=== PATIENT | male | born 1995 | race Caucasian/White ===

== ENCOUNTER 2017-07-31 19:27 | Observation (INO) | payer OTHER ==
[2017-07-31] MEDS ORDERED: NS 1,000 ML IV ONE ×2 (19:36→20:20)
[2017-07-31] MEDS ORDERED: LORazepam 2 MG/ML INJ IVP ONE (19:36)
[2017-07-31 19:42] LABS: PLATELET COUNT 421 10^3/uL (150-400)
--- NOTE | 2017-07-31 19:52 | EDPHY ---
H & P Smoking Status: Unknown if ever smoked Time Seen by Provider: 07/31/17 19:30 HPI/ROS: CHIEF COMPLAINT: Seizure HISTORY OF PRESENT ILLNESS: 21-year-old male presents to the emergency department by ambulance after having witnessed seizure at work. The patient apparently had tonic-clonic seizure lasting approximately 1 min and then was postictal per EMS. He did not bite his tongue. He was not incontinent of urine. No history of seizure disorder. The patient has been sober from alcohol and marijuana since July 05. He denies chest pain or difficulty breathing. Denies abdominal pain. Denies vomiting. No neck or back pain. He does complain of a headache. No fevers. The patient does tell me that he does not sleep well. He does not take benzodiazepines or any sleep aids. REVIEW OF SYSTEMS: Constitutional: No fever, no chills. Eyes: No double or blurry vision. ENT: No sore throat. Respiratory: No cough, no shortness of breath. Cardiac: No chest pain. Gastrointestinal: No abdominal pain, vomiting or diarrhea. Genitourinary: No dysuria. Musculoskeletal: No neck or back pain. Skin: No rashes. Neurological: headache. (Dejah Brambila) Past Medical/Surgical History: Substance abuse sober from alcohol marijuana x1 month (Dejah Brambila) Social History: Single (Dejah Brambila) Physical Exam: General Appearance: Alert, no distress. Anxious. Eyes: Pupils equal and round. Extraocular motions are all intact. ENT: Mouth: Mucous membranes very dry Respiratory: No wheezing, rhonchi, or rales, lungs are clear to auscultation. Cardiovascular: Regular rate and rhythm. Gastrointestinal: Abdomen is soft and nontender, no masses, no rebound or guarding, bowel sounds normal. Neurological: Alert and oriented x 3, cranial nerves II through XII grossly intact Skin: Warm and dry, no rashes. Musculoskeletal: Nontender to palpate along the cervical, thoracic or lumbar spine. Neck is supple. Extremities: Full range of motion and no peripheral edema. Psychiatric: Patient is oriented X 3, there is no agitation. (Dejah Brambila) Constitutional: Initial Vital Signs Temperature (C) 37 C 07/31/17 19:37 Heart Rate 129 H 07/31/17 19:37 Respiratory Rate 20 07/31/17 19:37 Blood Pressure 114/65 07/31/17 19:37 O2 Sat (%) 98 07/31/17 19:37 O2 Delivery Mode Room Air Allergies/Adverse Reactions: No Known Allergies Allergy (Unverified 07/31/17 19:37) Home Medications: Medication Instructions Recorded Acetaminophen [Tylenol 325mg (*)] 650 mg PO Q6 PRN tab 08/01/17 Medical Decision Making ED Course/Re-evaluation: 21-year-old male with first-time seizure presents to the emergency department. CT imaging of the brain was obtained which was normal. Laboratory studies reveal elevated white blood cell count of over 17,000. His creatinine is 1.9. BUN is 35. CO2 is 9. Sodium 145. Patient is receiving 2 L of IV normal saline. He received 1 mg of lorazepam IV upon arrival. The patient is feeling much better although still tachycardic with a heart rate of 119. Given his laboratory studies, he will be admitted to the hospitalist, Dr. Eleuterio Holland. Case was discussed with Dr. Noyola, secondary supervising physician, who did not directly evaluate the patient but agrees with treatment and plan. (Dejah Brambila) I have evaluated and participated in the management of this patient. My co- signature indicates that I have reviewed this chart and that I agree with the findings and the plan of care as documented. My personal history and physical findings include: Normal lung and breath sounds. He no longer has a headache. 21-year-old male in general good health who had a witnessed tonic-clonic seizure while at work tonight. 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 He denies a history of alcohol abuse and states that he has not had any alcohol for the past 3 weeks. He has never had a seizure before. He has not recently been ill, but states that he has not been sleeping well. At the time of my evaluation he reports a mild headache. He denies other injuries. On exam he is awake and alert. FOREST. EOMI. Facial expression symmetric. Tongue midline. Strength 5/5 throughout. Sensation intact to light touch over all 4 extremities. He is noted to have abnormal renal function/acute kidney injury. In addition is labs show electrolyte abnormalities and an anion gap acidosis. I doubt that these would result in seizure activity but that is certainly a possibility. He is being hospitalized for observation and further evaluation. ( Eloisa Noyola) Differential Diagnosis: Seizure including but not limited to electrolyte abnormality, alcohol withdrawal , medication noncompliance, head injury, and breakthrough seizure. (Dejah Brambila) - Data Points Laboratory Results: Laboratory Results 07/31/17 19:20 07/31/17 19:20 Medications Given: Discontinued Medications Sodium Chloride (Ns) 1,000 mls @ 0 mls/hr IV ONCE ONE PRN Reason: Wide Open Stop: 07/31/17 19:37 Last Admin: 07/31/17 19:40 Dose: 1,000 mls Sodium Chloride (Ns) 1,000 mls @ 0 mls/hr IV ONCE ONE PRN Reason: Wide Open Stop: 07/31/17 20:21 Last Admin: 07/31/17 20:36 Dose: 1,000 mls Sodium Chloride (Ns) 1,000 mls @ 200 mls/hr IV CONT ARTHUR Stop: 08/01/17 09:14 Last Admin: 08/01/17 03:51 Dose: 1,000 mls Lorazepam (Ativan Injection) 1 mg IVP EDNOW ONE Stop: 07/31/17 19:37 Last Admin: 07/31/17 19:40 Dose: 1 mg Departure - Departure Disposition: [facility] Acute Clinical Impression: Seizure, Acute kidney injury Condition: Good
[2017-07-31] MEDS ORDERED: ONDANSETRON 4 MG/2 ML VIAL IVP PRN (21:02)
[2017-07-31] MEDS ORDERED: ACETAMINOPHEN 325 MG TAB PO PRN (21:02)
--- NOTE | 2017-07-31 21:06 | PDGENHP ---
History and Physical - Chief Complaint Seizure - History of Present Illness This is a 21-year-old male with no significant past medical history who presented to the hospital after having a seizure that was witnessed by his co- worker at 7:00 p.m. today. Denies any previous episodes of seizure. He denies any substance use. He tells me that he works at a [employer] and typically would have a few drinks per night. He has not had a drink of alcohol since July 05. He denies any preceding alcohol withdrawal symptoms. He tells me that he typically does not drink much water. Prior to his seizure today he has been in his usual state of health. Denies having any fevers or chills. Currently has a headache that he tells me is getting better. History Information - Allergies/Home Medication List Allergies/Adverse Reactions: No Known Allergies Allergy (Unverified 07/31/17 19:37) Home Medications: Ibuprofen [Motrin (*)] 400 mg PO DAILY PRN 07/31/17 [Last Taken 07/17/17] I have personally reviewed and updated: family history, medical history, social history, surgical history - Past Medical History no pertinent PMH - Surgical History Reports: no pertinent surgical hx - Social History Smoking Status: Unknown if ever smoked Alcohol Use: Occasionally (Has not had a drink since July 05) Drug Use: None Review of Systems Review of Systems: ROS: 10pt was reviewed & negative except for what was stated in HPI & below Physical Exam Physical Exam: Temp Pulse Resp BP Pulse Ox 37 C 117 H 20 110/63 99 07/31/17 19:37 07/31/17 20:10 07/31/17 20:10 07/31/17 20:10 07/31/17 20:10 Constitutional: no apparent distress, appears nourished, not in pain Eyes: PERRL, anicteric sclera, EOMI Ears, Nose, Mouth, Throat: moist mucous membranes, hearing normal, ears appear normal, no oral mucosal ulcers Cardiovascular: regular rate and rhythym, no murmur, rub, or gallop, No edema Respiratory: no respiratory distress, no rales or rhonchi, clear to auscultation Gastrointestinal: normoactive bowel sounds, soft, non-tender abdomen, no palpable masses Genitourinary: no bladder fullness, no bladder tenderness Skin: warm, normal color, no rashes or abrasions, no fluctuance, no induration, other (Healed burn on right forearm), No mottled Musculoskeletal: full muscle strength, no muscle tenderness, normal joint ROM, no joint effusions Neurologic: AAOx3, CN II-XII Intact, other (Slight tremor), No pronator drift, No facial droop Psychiatric: interacting appropriately, not anxious, not encephalopathic, thought process linear Lymph, Heme, Immunologic: no cervical LAD, no supraclavicular LAD Lab Data & Imaging Review 07/31/17 19:20 07/31/17 19:20 WBC 17.27 10^3/uL (3.80-9.50) H 07/31/17 19:20 RBC 5.94 10^6/uL (4.40-6.38) 07/31/17 19:20 Hgb 17.8 g/dL (13.7-17.5) H 07/31/17 19:20 Hct 54.5 % (40.0-51.0) H 07/31/17 19:20 MCV 91.8 fL (81.5-99.8) 07/31/17 19:20 MCH 30.0 pg (27.9-34.1) 07/31/17 19:20 MCHC 32.7 g/dL (32.4-36.7) 07/31/17 19:20 RDW 11.9 % (11.5-15.2) 07/31/17 19:20 Plt Count 421 10^3/uL (150-400) H 07/31/17 19:20 MPV 10.2 fL (8.7-11.7) 07/31/17 19:20 Neut % (Auto) 54.6 % (39.3-74.2) 07/31/17 19:20 Lymph % (Auto) 32.4 % (15.0-45.0) 07/31/17 19:20 Cass % (Auto) 10.5 % (4.5-13.0) 07/31/17 19:20 Eos % (Auto) 1.5 % (0.6-7.6) 07/31/17 19:20 Baso % (Auto) 0.7 % (0.3-1.7) 07/31/17 19:20 Nucleat RBC Rel Count 0.0 % (0.0-0.2) 07/31/17 19:20 Absolute Neuts (auto) 9.44 10^3/uL (1.70-6.50) H 07/31/17 19:20 Absolute Lymphs (auto) 5.59 10^3/uL (1.00-3.00) H 07/31/17 19:20 Absolute Monos (auto) 1.81 10^3/uL (0.30-0.80) H 07/31/17 19:20 Absolute Eos (auto) 0.26 10^3/uL (0.03-0.40) 07/31/17 19:20 Absolute Basos (auto) 0.12 10^3/uL (0.02-0.10) H 07/31/17 19:20 Absolute Nucleated RBC 0.00 10^3/uL (0-0.01) 07/31/17 19:20 Immature Gran % 0.3 % (0.0-1.1) 07/31/17 19:20 Immature Gran # 0.05 10^3/uL (0.00-0.10) 07/31/17 19:20 Sodium 148 mEq/L (134-144) H 07/31/17 19:20 Potassium 3.7 mEq/L (3.5-5.2) 07/31/17 19:20 Chloride 104 mEq/L (97-110) 07/31/17 19:20 Carbon Dioxide 9 mEq/l (22-31) L* 07/31/17 19:20 Anion Gap 35 mEq/L (8-16) H 07/31/17 19:20 BUN 14 mg/dL (7-23) 07/31/17 19:20 Creatinine 1.9 mg/dL (0.7-1.3) H 07/31/17 19:20 Estimated GFR 45 07/31/17 19:20 Glucose 163 mg/dL (70-100) H 07/31/17 19:20 Calcium 10.7 mg/dL (8.5-10.4) H 07/31/17 19:20 Phosphorus 6.1 mg/dL (2.5-4.5) H 07/31/17 19:20 Ethyl Alcohol < 10 mg/dL (0-10) 07/31/17 19:20 Assessment & Plan Assessment: This is a 21-year-old male presenting with: # new onset seizure unclear etiology possibly due to withdrawal but is history does not seem to fit this picture. Suppose it could be due to his electrolyte abnormalities in the setting of his acute kidney injury # acute kidney injury unclear etiology he does take NSAIDs per his med rec which he did not reveal to me. # anion gap metabolic acidosis likely due to above # hypercalcemia most likely due to volume depletion # hyperphosphatemia # mild hypernatremia Plan: -place in observation -IV fluids -renal ultrasound -check magnesium level -repeat labs in the morning -neurology consultation
[2017-07-31] MEDS: NS 1,000 ML IV SCH (23:09)
[2017-08-01] MEDS: NS 1,000 ML IV SCH (03:51)
[2017-08-01 05:12] LABS: PLATELET COUNT 183 10^3/uL (150-400)
[2017-08-01 07:37] VITALS: TEMP 97.5
--- NOTE | 2017-08-01 10:54 | ASMTCASEMG ---
Living Arrangements What is your living Answers: With Other (Not Family) arrangement? Who do you live with? Type Of Residence What kind of residence do Answers: House you live in? Discharge Plan Comments Coordination Status Comments Notes: Patient is a 21yo single male who was admitted for a new onset seizure, unclear etiology. The seizure was witnessed by a coworker during a work shift. Observation status, requested neurology consult. SPL has been ordered. Patient will likely d/c independent. D/C needs TBD. CM will follow. Date Signed: 08/01/2017 10:54 AM Electronically Signed By:Pat Mullen LCSW
[2017-08-01 12:47] VITALS: BP 112/74; PULSE 50; RESP 16; O2SAT 91
--- NOTE | 2017-08-01 14:17 | NEUROPROG ---
[id number] Consult: CC: New Onset Seizure HPI: Initially seen 08/01/17. He had an apparent unprovoked generalized seizure on . He denied prior seizures, alcohol/drug use, or any known provoking reason for the seizure. He had a normal head CT and now has recovered from the seizure. Labs on 07/31/17 showed some abnormalities (Cr 1.9, etc) but his repeat labs the next day were generally unremarkable. I initially saw the patient on 08/01/17. He was feeling much better at that time. PMHx: none SHx: no drug use, minimal alcohol use FHx: NC ROS: Pt denied acute fever, total vision loss, active severe chest pain, respiratory failure, total body severe rash, total bowel/bladder incontinence, psychosis, active seizures, or active bleeding O: VS reviewed General: Alert Eyes: Fundoscopic exam not able to visualize optic disks CV: Heart RRR, no murmur, no carotid bruit Lungs: Clear to auscultation bilaterally, no rhonchi or rales Neuro: - Mental: . Oriented x person/place/date . concentration appears normal . speech fluency/comprehension normal . memory appears normal . fund of knowledge appear intact - Cranial Nerves: . II: PERRL, VFFTC . III/IV/: EOMI, no nystagmus, normal smooth pursuits, no Ptosis . V: facial sensation intact to LT . VII: face symmetric to eye closure and smile . VIII: hearing intact to conversation . IX/X: uvula raises symmetrically . XI: SCM 5/5 B/L strength . XII: tongue protrudes midline w/nl strength - Motor: . Tone: normal tone in all 4 extremity . 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 Single Unprovoked Generalized Seizure on 07/31/17: Normal head CT on and normal neurologic exam on 08/01/17. No reason found for seizure so recurrence estimated at 30% lifetime. Will hold on AEDs at this time. Plan: - Seizure precautions and no driving for 90 days - No need for AEDs at this time given single unprovoked seizure in setting of normal head CT and normal neurologic exam - F/U in 2-4 weeks in neurology clinic, will likely obtain brain MRI and EEG at that time No further neurologic w/u needed, neurology will sign off. Please re-consult for any change in neurologic status. Objective: Vital Signs Temp Pulse Resp BP Pulse Ox 36.4 C 50 L 16 112/74 91 L 08/01/17 12:00 08/01/17 12:00 08/01/17 12:00 08/01/17 12:00 08/01/17 12:00 Laboratory Results 08/01/17 04:37 08/01/17 04:37 07/31/17 08/01/17 08/02/17 05:59 05:59 05:59 Intake Total 4100 Output Total 725 Balance 3375 Allergies/Adverse Reactions: No Known Allergies Allergy (Unverified 07/31/17 19:37)
--- NOTE | 2017-08-01 19:40 | GDS ---
[f rep st] DISCHARGE SUMMARY ADMISSION DIAGNOSIS: New onset seizure, acute kidney injury, anion gap metabolic acidosis, hypercalc emia, hyperphosphatemia, hypernatremia. DISCHARGE DIAGNOSIS: New onset seizure. Acute kidney injury, resolved. Anion gap metabolic acidosi s, resolved. Hypercalcemia, resolved. Hyperphosphatemia, resolved. Hypernatremia, resolved. CONSULTS: Neurology, Dr. Robbin Hitchcock. PROCEDURES: Head CT. No acute intracranial abnormality. Abdomen and pelvis ultrasound. Normal krupa l sonography. Mild splenomegaly. INITIAL HISTORY AND PHYSICAL: Please see previously dictated note by Dr. Holland. HOSPITAL COURSE: 1. New onset unprovoked seizure. The patient was brought into the emergency department after having a witnessed tonic-clonic seizure while working. He had imaging and laboratory studies in the emerge ncy department. He was admitted for overnight observation. No further seizure activity was seen. Darrell palm was seen by Dr. Hitchcock on the morning of discharge. He had a completely normal neurological exam, an d Dr. Hitchcock did not feel that antiepileptic drugs were needed at this time. He counseled the patient and also his mom about the recurrence risk of approximately 30% lifetime. He warned him to not drive for at least 90 days. He has asked him to see him in the Neurology Clinic and will likely obtain a brain MRI and EEG at that time. He has been counseled to return ANTHONY if at any time he has any sort of recurrent seizure-like activity. Of note, his white blood cell count was 17 at admission but decr eased to 8.6 at discharge. There was no indication of infection, and he denied any infectious sympto ms. He was also noted to have a hemoglobin of 17.8, but this came down to 13.8. Urinalysis was done , and a urine alcohol screen was done, which was less than 10 at admission. However, a urine tox scr een was not done at admission. This was done in the afternoon prior to discharge, and it was negativ e for opiates, barbiturates, PCP, amphetamines, benzodiazepines, cocaine, and marijuana. He denied a ny chronic drug use, marijuana use, or alcohol use. 2. Acute kidney injury. He was noted to have a creatinine of 1.9 at admission. He was not aware of any previous kidney problems. He was given IV hydration, and creatinine responded nicely and was 1. 1 on the morning of discharge. He was taking a full regular diet, had a normal renal ultrasound. He will be discharged to follow up with his primary care provider, Dr. He, in [place] at [facility] sometime this week and should have a repeat BMP to ensure it remains normal. He had multip le other electrolyte abnormalities including an anion gap acidosis, hypercalcemia, and hyperphosphate teodora. However, these also resolved with IV hydration. DISCHARGE MEDICATIONS: He can take Tylenol as needed for muscle aches. He has been instructed to no t take any [id number] ibuprofen, Advil, Aleve, aspirin, or other nonsteroidal anti-inflammatori es because of recent acute kidney injury. He has also been instructed to not take any ndwj-wnz-uvtgf er supplements, vitamins, or herbs until he is seen by his primary care provider and had followup lab oratories. DISCHARGE INSTRUCTIONS: He has been instructed to not drive by Dr. Hitchcock for 90 days. He should watc h urine output and color and ensure he is drinking plenty of fluids. Discharge followup should be wi th his primary care provider, Dr. He in [place], within the next few days, with Dr. Hitchcock within t he next few weeks. If at any time he has any recurrent seizure-like activity, fever, decreased urina ry output, or other concerns, he should follow up immediately either with his primary or return to [facility] emergency department. /[id number]/MODL
--- NOTE | 2017-08-02 16:25 | ASDISCHSUM ---
Discharge Information Plan Status:Home with No Needs Medically Cleared to Leave:07/31/2017 Discharge Date:08/01/2017 01:20 PM CM D/C Disposition: ADT D/C Disposition:Home, Routine, Self-Care Projected Discharge Date:08/01/2017 12:00 AM Transportation at D/C: Discharge Delay Reason: Follow-Up Date:08/01/2017 12:00 AM Discharge Slot: Final Diagnosis: Placement Information Patient Contact Information Contact Name:GUILLERMOANGELA Relationship: Address: Home Phone: Work Phone: City: Alternate Phone: [email or web address] Code: Email: Financial Information [facility] Primary Plan Desc:[employer] [facility] Primary Plan Number:[id number] Secondary Plan Desc: Secondary Plan Number: Assessment Information [facility] Initial CM Assessment Living Arrangements What is your living Answers: With Other (Not Family) arrangement? Who do you live with? Type Of Residence What kind of residence do Answers: House you live in? Discharge Plan Comments Coordination Status Comments Notes: Patient is a 21yo single male who was admitted for a new onset seizure, unclear etiology. The seizure was witnessed by a coworker during a work shift. Observation status, requested neurology consult. SPL has been ordered. Patient will likely d/c independent. D/C needs TBD. CM will follow. Date Signed: 08/01/2017 10:54 AM Electronically Signed By:Pat Mullen LCSW Intervention Information
== END 2017-08-01 13:20 | disposition home or self-care (01) ==
LOC: F3E 21:58
PROVIDERS: ADMIT Family Medicine; ATTEND Family Medicine
DX: G40.909 Epilepsy, unspecified, not intractable, without status epilepticus (principal); N17.9 Acute kidney failure, unspecified; E87.2 Acidosis; E83.52 Hypercalcemia; E83.39 Other disorders of phosphorus metabolism; E87.0 Hyperosmolality and hypernatremia
CPT/HCPCS: 70450; 76770; 96361; 96374; 99285; G0378; 80307; G0480; J2060